=== PATIENT | male | born 1955 | race Caucasian/White ===

== ENCOUNTER 2018-11-11 05:32 | Emergency (ER) | payer BC, OTHER ==
[~2018-11-11] VITALS: Ht 188 cm; Wt 117.9 kg
[~2018-11-11 05:32] MED LIST: CHOL50004 PO; CYAN250010 PO; LEVO500T20 PO; LOSA50TA3 PO; MV-M1TAB32 PO; [UNRECOGNIZED DRUG - OTHER] PO
[2018-11-11 05:36] VITALS: BP_SYST 150
[2018-11-11 06:43] VITALS: BP_SYST 135
== END 2018-11-11 06:28 | disposition home or self-care (01) ==
LOC: SED 05:32
DX: H10.89 Other conjunctivitis (principal); B96.89 Other specified bacterial agents as the cause of diseases classified elsewhere; N40.0 Benign prostatic hyperplasia without lower urinary tract symptoms; I10 Essential (primary) hypertension; Z79.899 Other long term (current) drug therapy
CPT/HCPCS: 99283

== ENCOUNTER 2019-11-07 14:41 | Emergency (ER) | payer OTHER ==
[~2019-11-07] VITALS: Ht 188 cm; Wt 116.1 kg
[2019-11-07 14:41] VITALS: BP_SYST 145
--- NOTE | 2019-11-07 14:41 | NUR ---
BROUGHT BACK TO BED #4 AND TRIAGED. REPORT GIVEN TO IRENE
--- NOTE | 2019-11-07 14:45 | NUR ---
Pt brought by neighborregina, Roman&Ox4, pt presents to ER with dizziness, states his BP was low prior arrival ,current BS 119/65, denies pain , skin pink and warm , cap refill <3, VSS, ambulatory with steady gait.
--- NOTE | 2019-11-07 15:00 | NUR ---
Torres Zamora at bedside examining patient
[2019-11-07] MEDS ORDERED: NACL 0.9% 1,000 ML IV ONE ×2 (15:15→16:00)
[2019-11-07 15:24] LABS: BASOPHILS # (AUTO) 0.1 K/uL (0.0-0.2); BASOPHILS % (AUTO) 0.6 % (0.0-2.0); EOSINOPHILS # (AUTO) 0.3 K/uL (0.0-0.4); EOSINOPHILS % (AUTO) 2.1 % (0.0-4.0); HEMATOCRIT 45.8 % (36-54); HEMOGLOBIN 15.6 g/dL (14.0-18.0); LYMPHOCYTES # (AUTO) 3.7 K/uL (1.0-5.5); LYMPHOCYTES % (AUTO) 28.2 % (20.5-51.5); MEAN CORPUSCULAR HEMOGLOBIN 28 pg (27-31); MEAN CORPUSCULAR HGB CONC 34 % (32-36); MEAN CORPUSCULAR VOLUME 83 fL (79.0-98.0); MONOCYTES # (AUTO) 1.5 K/uL (0.0-1.0); MONOCYTES % (AUTO) 11.3 % (1.7-9.3); NEUTROPHILS # (AUTO) 7.5 K/uL (1.8-7.7); NEUTROPHILS % (AUTO) 57.8 % (40.0-70.0); PLATELET COUNT (AUTO) 337 K/uL (130-430); RED BLOOD CELL COUNT(AUTO) 5.55 MIL/uL (4.2-6.2); RED CELL DISTRIBUTION WIDTH 14.6 % (9.0-15.0); WHITE BLOOD COUNT (AUTO) 12.9 K/uL (4.8-10.8)
[2019-11-07 15:32] LABS: CALCIUM 8.9 mg/dL (8.4-11.0); CREATININE 1.5 mg/dL (0.55-1.30); POTASSIUM 3.3 mmol/L (3.5-5.1)
[2019-11-07 15:38] LABS: ALBUMIN 3.7 g/dL (3.4-4.8); TOTAL BILIRUBIN 0.9 mg/dL (0.0-1.0)
[2019-11-07] MEDS ORDERED: POTASSIUM CHLORIDE 20 MEQ TAB.PRT.SR PO ONE (15:45)
[2019-11-07 17:30] VITALS: BP_SYST 106
--- NOTE | 2019-11-07 17:30 | NUR ---
Patient given written and verbal discharge instructions and verbalizes understanding. ER MD discussed with patient the results and treatment provided. Patient in stable condition. ID arm band removed. IV catheter removed intact and dressing applied, no active bleeding. No Rx given. Patient educated on pain management and to follow up with PMD. Pain Scale0/10 . Opportunity for questions provided and answered. Medication side effect fact sheet provided.
== END 2019-11-07 17:30 | disposition home or self-care (01) ==
LOC: SED 14:41
DX: E86.0 Dehydration (principal); E87.1 Hypo-osmolality and hyponatremia; E87.6 Hypokalemia; I10 Essential (primary) hypertension; J44.9 Chronic obstructive pulmonary disease, unspecified; G89.29 Other chronic pain; Z87.448 Personal history of other diseases of urinary system; Z79.899 Other long term (current) drug therapy
CPT/HCPCS: 36415; 80053; 85025; 96360; 96361; 99283

== ENCOUNTER 2022-06-21 10:22 | Emergency (ER) | payer OTHER ==
[~2022-06-21] VITALS: Ht 188 cm; Wt 124.7 kg
[2022-06-21 10:22] VITALS: BP_SYST 137
[2022-06-21] MEDS ORDERED: LIDOCAINE/EPI 1% 1:100000 20 ML VIAL INJ ONE (10:30)
[2022-06-21] MEDS ORDERED: BACITRACIN 1 GM OINT TP ONE (11:15)
[2022-06-21] MEDS ORDERED: NAPR-1172 PO (11:35)
[2022-06-21] MEDS ORDERED: ACETAMINOPHEN 500 MG TABLET PO ONE (11:45)
[2022-06-21] MEDS ORDERED: NEOMY SULF/BACITRAC ZN/POLY 28 GM OINT..GM. TP ONE (11:45)
[2022-06-21 11:49] VITALS: BP_SYST 137
== END 2022-06-21 11:51 | disposition home or self-care (01) ==
LOC: SED 10:22
DX: S61.210A Laceration without foreign body of right index finger without damage to nail, initial encounter (principal); I10 Essential (primary) hypertension; J44.9 Chronic obstructive pulmonary disease, unspecified; Z79.899 Other long term (current) drug therapy; W26.8XXA Contact with other sharp object(s), not elsewhere classified, initial encounter; Y93.89 Activity, other specified; Y92.89 Other specified places as the place of occurrence of the external cause; Y99.8 Other external cause status
CPT/HCPCS: 99282

== ENCOUNTER 2022-06-28 09:32 | Emergency (ER) | payer OTHER ==
[~2022-06-28] VITALS: Ht 182.9 cm; Wt 122.5 kg
[2022-06-28 09:32] VITALS: BP_SYST 153
[~2022-06-28 09:32] MED LIST changes: +NAPR-1172 PO
--- NOTE | 2022-06-28 09:32 | NUR ---
BROUGHT BACK TO BED IN [place] AND TRIAGED. REPORT GIVEN TO GEMA
--- NOTE | 2022-06-28 09:59 | NUR ---
Pt presents to the ER BIB self for suture removal. Pt denies Signs symptoms of infection. Pt is afebrile with NAD. Pt states he was working with tool saw and suffered from two directional cuts to the index finger last week.
--- NOTE | 2022-06-28 10:00 | NUR ---
ER at bedside examining patient. 5 Sutures removed.
[2022-06-28] MEDS ORDERED: AUG875 PO (10:02)
[2022-06-28] MEDS ORDERED: BACITRACIN 1 GM OINT TP ONE (10:05)
[2022-06-28 10:06] VITALS: BP_SYST 153
--- NOTE | 2022-06-28 10:07 | NUR ---
Patient given written and verbal discharge instructions and verbalizes understanding. ER MD discussed with patient the results and treatment provided. Patient in stable condition. ID arm band removed. Opportunity for questions provided and answered. Medication side effect fact sheet provided.
== END 2022-06-28 10:07 | disposition home or self-care (01) ==
LOC: SED 09:32
DX: Z48.02 Encounter for removal of sutures (principal); J44.9 Chronic obstructive pulmonary disease, unspecified; I10 Essential (primary) hypertension; Z79.899 Other long term (current) drug therapy
CPT/HCPCS: 99281

== ENCOUNTER 2022-07-20 14:27 | Emergency (ER) | payer OTHER ==
[~2022-07-20] VITALS: Ht 188 cm; Wt 120.2 kg
[2022-07-20 14:27] VITALS: BP_SYST 132
[~2022-07-20 14:27] MED LIST changes: +AUG875 PO
--- NOTE | 2022-07-20 14:27 | NUR ---
Patient triaged and placed in waiting room. VSS and patient appears in no acute distress at this time. Accompanied by SPOUSE, awaiting available bed, and MD notified of need for MSE.
--- NOTE | 2022-07-20 15:00 | NUR ---
Placed patient into Bed 7, Patient AOx4, c/c 10/10 Lower Back Pain. Patient steats he has had chronic back pain x 40 years with no significant relief. at bedside.
[2022-07-20 16:40] VITALS: BP_SYST 134
[2022-07-20] MEDS ORDERED: ONDANSETRON 4 MG ODT TAB PO ONE (16:45)
[2022-07-20] MEDS ORDERED: MORPHINE SULFATE 10 MG/ML VIAL IM ONE (16:45)
--- NOTE | 2022-07-20 16:56 | NUR ---
Medicated per order, patient tolerated well.
--- NOTE | 2022-07-20 17:33 | NUR ---
Pain medication effective, patient calm and cooperative in no acute distress and or discomfort.
[2022-07-20] MEDS ORDERED: TRAM50TA PO (18:17)
[2022-07-20] MEDS ORDERED: CYCL10TA24 PO (18:17)
--- NOTE | 2022-07-20 18:17 | NUR ---
Patient given written and verbal discharge instructions and verbalizes understanding. ER MD discussed with patient the results and treatment provided. Patient in stable condition. ID arm band removed. IV catheter removed intact and dressing applied, no active bleeding. Rx of given. Patient educated on pain management and to follow up with PMD. Pain Scale 2/10 Opportunity for questions provided and answered. Medication side effect fact sheet provided.
== END 2022-07-20 18:16 | disposition home or self-care (01) ==
LOC: SED 14:27
DX: M54.50 Low back pain, unspecified (principal); J44.9 Chronic obstructive pulmonary disease, unspecified; I10 Essential (primary) hypertension; Z79.899 Other long term (current) drug therapy
CPT/HCPCS: 99283; 96372; Q0162; J2270

== ENCOUNTER 2022-07-21 20:11 | Observation (INO) | payer OTHER ==
[~2022-07-21] VITALS: Ht 188 cm; Wt 117.9 kg
[~2022-07-21 20:11] MED LIST changes: +CYCL10TA24 PO; +TRAM50TA PO
[2022-07-21 20:15] VITALS: BP_SYST 141
--- NOTE | 2022-07-21 20:15 | NUR ---
Patient triaged and placed in waiting in the ambulance [facility] w/ ems gurney. VSS and patient appears in no acute distress at this time. Accompanied by ems, awaiting available bed, and MD notified of need for MSE.
--- NOTE | 2022-07-21 21:21 | NUR ---
Patient to ER bed 2 to gown for evaluation. Side rails up. Report given to VANI MELO(RUTHIE).
--- NOTE | 2022-07-21 21:30 | NUR ---
BIB AMB FROM HOME W C/O LOWER BACK PAIN X 24 HOURS AND CONSTIPATION X 7 DAYS. PT REPORTS NOT PASSING A BOWEL MOVEMENT SINCE SUNDAY. PT ALSO REPORTS NOT DRINKING A BOTTLE OF WATER IN 3 DAYS. REPORTS BACK PAIN 07/01. UNABLE TO AMBULATE DUE TO PAIN. A/O X4. ALLERGIES DENIES PMH: PROSTATE SX
--- NOTE | 2022-07-21 22:04 | NUR ---
ER at bedside examining patient.
[2022-07-21] MEDS ORDERED: HYDROmorphone 1 MG/ML INJ. CARTRIDGE IM ONE (23:15)
--- NOTE | 2022-07-21 23:36 | NUR ---
PT REPORTS BACK PAIN 9/10. UNABLE TO TURN SIDE TO SIDE OR AMBULATE TO RESTROOM. PT PROVIDED URINAL
--- NOTE | 2022-07-22 | NUR ---
PT PROVIDED URINE
[2022-07-22 00:38] LABS: BILIRUBIN,URINE NEGATIVE (NEGATIVE); BLOOD, URINE NEGATIVE (NEGATIVE); CLARITY/URINE CLEAR (CLEAR); COLOR,URINE YELLOW (YELLOW); GLUCOSE,URINE NEGATIVE (NEGATIVE); KETONES,URINE TRACE (NEGATIVE); LEUKOCYTE ESTERASE ,URINE NEGATIVE (NEGATIVE); NITRITE, URINE NEGATIVE (NEGATIVE); PROTEIN URINE NEGATIVE (NEGATIVE)
[2022-07-22 01:05] LABS: CALCIUM 8.7 mg/dL (8.4-11.0); CREATININE 0.83 mg/dL (0.55-1.30); POTASSIUM 3.4 mmol/L (3.5-5.1)
[2022-07-22 01:11] LABS: ALBUMIN 3.2 g/dL (3.4-4.8); TOTAL BILIRUBIN 0.8 mg/dL (0.0-1.0)
[2022-07-22 01:15] LABS: BASOPHILS # (AUTO) 0.4 K/uL (0.0-0.2); BASOPHILS % (AUTO) 4.1 % (0.0-2.0); EOSINOPHILS # (AUTO) 0.2 K/uL (0.0-0.4); EOSINOPHILS % (AUTO) 2.6 % (0.0-4.0); HEMATOCRIT 45.9 % (36-54); LYMPHOCYTES # (AUTO) 2.1 K/uL (1.0-5.5); LYMPHOCYTES % (AUTO) 23.9 % (20.5-51.5); MEAN CORPUSCULAR VOLUME 84 fL (79.0-98.0); MONOCYTES # (AUTO) 0.8 K/uL (0.0-1.0); MONOCYTES % (AUTO) 8.8 % (1.7-9.3); NEUTROPHILS # (AUTO) 5.4 K/uL (1.8-7.7); NEUTROPHILS % (AUTO) 60.6 % (40.0-70.0); PLATELET COUNT (AUTO) 297 K/uL (130-430); RED BLOOD CELL COUNT(AUTO) 5.49 MIL/uL (4.2-6.2); WHITE BLOOD COUNT (AUTO) 8.9 K/uL (4.8-10.8)
--- NOTE | 2022-07-22 01:41 | NUR ---
Medication reconciliation completed with information provided by the pt at the bedside. Any prior medication reconciliation on file was reviewed and corrected.
--- NOTE | 2022-07-22 02:40 | NUR ---
Patient resting quietly. Vital signs within normal range. Reports back pain 9/10 upon movement.
[2022-07-22] MEDS ORDERED: HYDROmorphone 1 MG/ML INJ. CARTRIDGE IM ONE (02:45)
--- NOTE | 2022-07-22 03:16 | NUR ---
Patient resting quietly. No acute distress noted. Vital signs within normal range.
--- NOTE | 2022-07-22 04:28 | NUR ---
Patient resting quietly. No acute distress noted. Vital signs within normal range. Reports pain 4/10 currently but tolerable.
[2022-07-22] MEDS ORDERED: traMADol HCL HCL 50 MG TABLET (ULTRAM) PO PRN ×2 (05:15→13:00)
--- NOTE | 2022-07-22 05:21 | NUR ---
Admit bed requested Patient will be admitted to care of Dr. CASE. Admitted to MED SURG OBS unit. Diagnosis ACUTE BACK PAIN Inpatient (Yes or No) NO Observation (Yes or No) YES Orientation concerns or request close to nursing station (Yes or No) NO Covid Status NEGATIVE On vent or bipap NO Isolation requirements NO Needs a sitter NO From Home (Yes or if No enter name of facility) YES Requires Dialysis (Yes or No) NO Med Rec Completed (Yes of No) PENDING
--- NOTE | 2022-07-22 06:40 | NUR ---
PT REPORTED FEELING NAUSEATED AND WANTED TO THROW UP. ERMD ORDERED ZOFRAN.
[2022-07-22] MEDS ORDERED: ONDANSETRON HCL 4 MG/2 ML VIAL IVP ONE (06:45)
--- NOTE | 2022-07-22 07:09 | NUR ---
Received report from LORIE Cheatham. Patient in no acute distress, VSS, resting on gurney. Will monitor and provide care as ordered.
--- NOTE | 2022-07-22 08:51 | NUR ---
Admission Note Received patient from ER with diagnosis of acute back pain. Initial Plan of Care discussed-patient verbalized understanding.. Oriented to room, call light, pain management and safety.
--- NOTE | 2022-07-22 08:51 | NUR ---
Patient will be admitted to care of Dr. Henderson. Admitted to Med-Surg unit. Will go to room 112A. Belongings list completed. Complete and up to date summary report printed. SBAR report given at bedside with opportunity for questions.
[2022-07-22 08:52] VITALS: BP_SYST 138
[2022-07-22] MEDS: HYDROmorphone 1 MG/ML INJ. CARTRIDGE IVP PRN ×2 (10:20→18:58)
[2022-07-22] MEDS ORDERED: LOSARTAN POTASSIUM 50 MG TABLET (COZAAR) PO ONE (13:15)
[2022-07-22] MEDS ORDERED: ONDANSETRON HCL 4 MG/2 ML VIAL IVP PRN (14:15)
[2022-07-22] MEDS ORDERED: MAGNESIUM CITRATE 300 ML ORAL SOLUTION PO PRN (14:45)
[2022-07-22] MEDS ORDERED: DOCUSATE SODIUM 250 MG CAPSULE PO ONE (15:00)
[2022-07-22] MEDS ORDERED: POLYETHYLENE GLYCOL 3350, 17 GM/ POWD.PACK PO PRN (15:15)
--- NOTE | 2022-07-22 15:51 | NUR ---
PT WAS SEEN FOR DYSPHAGIA. PT WAS ABLE TO SAFELY SWALLOW REGULAR DIET WITH THIN LIQUID WITHOUT S/S OF ASPIRATION. RECOMMENDATION REGULAR DIET WITH THIN LIQUID.
--- NOTE | 2022-07-22 18:47 | NUR ---
CLOSING NOTES: PATIENT IS RESTING IN BED WATCHING TV WITH AT THE BEDSIDE. NO ADDITIONAL DISTRESS NOTED. ALL NEEDS MET AT THIS TIME. STABLE CONDITION.
[2022-07-22 20:16] VITALS: BP_SYST 121
[2022-07-22] MEDS: DOCUSATE SODIUM 250 MG CAPSULE PO SCH (21:51)
[2022-07-22] MEDS: CYCLOBENZAPRINE HCL 10 MG TABLET (FLEXERIL) PO SCH (21:51)
[2022-07-22] MEDS: SENNOSIDES/DOCUSATE SODIUM 1 TAB TABLET(SENOKOT-S) PO SCH (21:51)
[2022-07-23 01:08] VITALS: BP_SYST 104
[2022-07-23 07:49] LABS: ALBUMIN 2.9 g/dL (3.4-4.8); CALCIUM 8.7 mg/dL (8.4-11.0); CREATININE 0.93 mg/dL (0.55-1.30); POTASSIUM 3.7 mmol/L (3.5-5.1)
[2022-07-23 07:51] VITALS: BP_SYST 145
--- NOTE | 2022-07-23 08:00 | NUR ---
received pt in bed. res even and labored. no s/s of pain or distress noted. vitals stable safety and fall precautions in place. not in acute distress.will continue to monitor
[2022-07-23] MEDS: LOSARTAN POTASSIUM 50 MG TABLET (COZAAR) PO SCH (10:05)
[2022-07-23] MEDS: DOCUSATE SODIUM 250 MG CAPSULE PO SCH ×2 (10:05→22:41)
[2022-07-23 11:07] VITALS: BP_SYST 123
--- NOTE | 2022-07-23 12:30 | NUR ---
rounds pt stable denies any pain or orther discomfort
--- NOTE | 2022-07-23 13:00 | NUR ---
seen by dr blanton . new order received
[2022-07-23 13:39] LABS: BASOPHILS % (AUTO) 0.3 % (0.0-2.0); EOSINOPHILS # (AUTO) 0.4 K/uL (0.0-0.4); EOSINOPHILS % (AUTO) 6.7 % (0.0-4.0); HEMATOCRIT 44.5 % (36-54); LYMPHOCYTES # (AUTO) 1.8 K/uL (1.0-5.5); LYMPHOCYTES % (AUTO) 31.8 % (20.5-51.5); MEAN CORPUSCULAR VOLUME 83 fL (79.0-98.0); MONOCYTES # (AUTO) 0.7 K/uL (0.0-1.0); MONOCYTES % (AUTO) 12.5 % (1.7-9.3); NEUTROPHILS # (AUTO) 2.8 K/uL (1.8-7.7); NEUTROPHILS % (AUTO) 48.7 % (40.0-70.0); PLATELET COUNT (AUTO) 276 K/uL (130-430); RED BLOOD CELL COUNT(AUTO) 5.39 MIL/uL (4.2-6.2); RED CELL DISTRIBUTION WIDTH 14.9 % (9.0-15.0); WHITE BLOOD COUNT (AUTO) 5.8 K/uL (4.8-10.8)
[2022-07-23 16:40] VITALS: BP_SYST 120
--- NOTE | 2022-07-23 19:30 | NUR ---
CLOSING NOTES PT STABLE.DENIES ANY PAIN OR OTHER DISCOMFORT.ALL NEEDS MET. REPORTGIVEN TO CHRISTINE MELO
[2022-07-23 20:21] VITALS: BP_SYST 121
[2022-07-23] MEDS: SENNOSIDES/DOCUSATE SODIUM 1 TAB TABLET(SENOKOT-S) PO SCH (22:42)
[2022-07-23] MEDS: CYCLOBENZAPRINE HCL 10 MG TABLET (FLEXERIL) PO SCH (22:42)
[2022-07-24 02:57] VITALS: BP_SYST 97
--- NOTE | 2022-07-24 08:00 | NUR ---
Opening note Pt. is AAOx4, no reports of pain. Pt. is able to ambulate independently with no pain. Pt. reports constipation, prn medications will be given. No signs of acute distress will continue to monitor.
[2022-07-24] MEDS: DOCUSATE SODIUM 250 MG CAPSULE PO SCH (11:05)
[2022-07-24] MEDS: LOSARTAN POTASSIUM 50 MG TABLET (COZAAR) PO SCH (11:05)
[2022-07-24] MEDS ORDERED: BISACODYL 10 MG/SUPPOSITORY RC ONE (13:15)
--- NOTE | 2022-07-24 14:20 | NUR ---
MIDSHIFT NOTE Pt. is AAOx4 no reports of pain. Patient has still not had a bowel movement spoke to Dr. Henderson obtained order for suppository which has been given.
[2022-07-24 15:33] VITALS: BP_SYST 147
[2022-07-24] MEDS ORDERED: SENN-22 PO (16:10)
[2022-07-24] MEDS ORDERED: DOCU250C71 PO (16:10)
== END 2022-07-24 16:25 | disposition home or self-care (01) ==
LOC: SED 20:11 → SMU 07-22 05:11
PROVIDERS: ADMIT Specialist; ATTEND Specialist
DX: M51.27 Other intervertebral disc displacement, lumbosacral region (principal); Z20.822 Contact with and (suspected) exposure to COVID-19; M54.9 Dorsalgia, unspecified; K59.00 Constipation, unspecified; E87.6 Hypokalemia; E44.1 Mild protein-calorie malnutrition; Z79.899 Other long term (current) drug therapy
CPT/HCPCS: 96372 ×2; 80053 ×2; 85025 ×2; 36415 ×2; 72128; 72131; 76376; 99285; 96374; 96375; 96376; 92610; 81003; 87426; 72148; 97162; J1170 ×2; J2405; G0378 ×3